=== PATIENT | male | born 1970 | race Caucasian/White ===

== ENCOUNTER 2017-10-27 14:09 | Emergency (ER) | payer SELFPAY ==
[~2017-10-27] VITALS: Ht 185.4 cm; Wt 105.0 kg
[2017-10-27 14:30] VITALS: BP 129/75; PULSE 96; RESP 16; TEMP 98.2; O2SAT 98
[2017-10-27] MEDS ORDERED: LEVE500 (16:10)
[2017-10-27] MEDS ORDERED: TOPI25 PO (16:10)
[2017-10-27] MEDS ORDERED: DOXE25CA2 PO (16:10)
[2017-10-27] MEDS ORDERED: VENL25TA PO (16:10)
[2017-10-27] MEDS ORDERED: ACETAMINOPHEN/HYDROcodone 325 MG/5 MG TAB PO ONE (16:15)
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
[2017-10-27] MEDS ORDERED: HYDR-3516 PO (18:03)
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
== END 2017-10-27 23:12 | disposition home or self-care (01) ==
LOC: NEPK 14:09
DX: S62.300A Unspecified fracture of second metacarpal bone, right hand, initial encounter for closed fracture (principal); Y04.2XXA Assault by strike against or bumped into by another person, initial encounter; Z79.899 Other long term (current) drug therapy; Z72.0 Tobacco use; Z86.69 Personal history of other diseases of the nervous system and sense organs
CPT/HCPCS: 29125; 73130